=== PATIENT | female | born 1970 ===

== ENCOUNTER 2017-03-20 10:45 | Outpatient (CLI) | payer OTHER ==
[~2017-03-20] VITALS: Ht 160 cm; Wt 61.2 kg
== END 2017-03-20 11:10 | disposition home or self-care (01) ==
LOC: OFIC 805 10:45
DX: J34.89 Other specified disorders of nose and nasal sinuses (principal); R09.89 Other specified symptoms and signs involving the circulatory and respiratory systems; R51 Headache; R06.7 Sneezing